=== PATIENT | female | born 1990 | race Two or more races ===

== ENCOUNTER → 2016-07-22 | Outpatient (CLI) | payer OTHER ==
--- NOTE | 2016-07-22 11:44 | REP ---
CHEST PA AND LATERAL: 07/22/2016. Clinical history: Chest pain. Findings: No prior study. Two-views show lungs well inflated and clear. Heart, mediastinal and hilar contours are normal. Airway intact. Bony thorax shows no focal lesion. No pneumothorax or pneumomediastinum. No free air under the diaphragm. Impression: 1. No acute cardiopulmonary change. Signed by Nj Blount MD 07/22/2016 08:22 P
== END ==
LOC: M LRY 11:13
PROVIDERS: ATTEND Nurse Practitioner Family
DX: R07.9 Chest pain, unspecified (principal)
CPT/HCPCS: 71020; 93005; G0463